=== PATIENT | male | born 1945 | race Caucasian/White ===

== ENCOUNTER 2017-02-26 10:15 | Inpatient (IN) | payer OTHER ==
[~2017-02-26] VITALS: Ht 175.3 cm; Wt 105.7 kg
[~2017-02-26 10:15] MED LIST: ASPIR 8181 M1 PO; CO Q-10100 MG PO; FISH OIL 1,0001 EA10 PO; LANTUS 10100 UNITS/ SC; NOVOLOG 10100 UNITS/ SC; OXYCODONE HCL10 MG PO; OXYCONTIN40 MG PO; SLOW-MAG,MAG DE64 MG PO; TRAVATAN Z5 ML BOTH EYES; VITAMIN D31000 UNIT PO
[2017-02-26 11:13] LABS: HEMATOCRIT 41.6 % (38.0-50.0); HEMOGLOBIN 14.2 G/DL (12.5-16.6); MCH 30.5 PG (29.0-34.0); MCHC 34.1 G/DL (30.0-36.0); MCV 89.3 FL (86-99); PLATELET COUNT 207 K/uL (156-360); RBC DIS.WIDTH-CV 13.4 % (11.8-14.6); RBC DIS.WIDTH-SD 43.8 % (39-53); RED BLOOD COUNT 4.66 M/uL (4.00-5.50); WHITE BLOOD COUNT 8.1 K/uL (4.1-10.2)
[2017-02-26 11:32] LABS: CHLORIDE 109 MEQ/L (99-109); POTASSIUM 4.5 MEQ/L (3.7-5.4); SODIUM 142 MEQ/L (136-147)
[2017-02-26 11:36] VITALS: BP 139/63
[2017-02-26 11:38] LABS: CREATININE 0.8 MG/DL (0.6-1.3); GFR ESTIMATE (CALCULATED) > 59 mL/min/ (58.99-99999); GLUCOSE 142 mg/dL (70-99); UREA NITROGEN (BUN) 23 mg/dL (9-23)
[2017-02-26 17:21] VITALS: BP 140/65
[2017-02-26 23:39] VITALS: BP 130/59
[2017-02-27] VITALS: BP 130/59
[2017-02-27 07:06] VITALS: BP 138/62
[2017-02-27 15:26] VITALS: BP 133/60
[2017-02-27 23:20] VITALS: BP 118/56
[2017-02-28] VITALS: BP 118/56
[2017-02-28 07:02] VITALS: BP 138/63
[2017-02-28 15:14] VITALS: BP 128/62
[2017-02-28 23:09] VITALS: BP 122/67
[2017-03-01] VITALS: BP 122/67
[2017-03-01 07:58] VITALS: BP 111/55
[2017-03-01 13:53] LABS: CREATININE 0.8 MG/DL (0.6-1.3); GFR ESTIMATE (CALCULATED) > 59 mL/min/ (58.99-99999)
[2017-03-01 15:56] VITALS: BP 131/60
[2017-03-01 23:55] VITALS: BP 117/58
[2017-03-02 08:38] VITALS: BP 135/63
[2017-03-02 16:09] VITALS: BP 137/64
[2017-03-03 00:12] VITALS: BP 112/58
[2017-03-03 07:26] VITALS: BP 127/61
[2017-03-03 15:05] VITALS: BP 126/59
[2017-03-03 23:55] VITALS: BP 123/58
[2017-03-04] MEDS ORDERED: OXYCONTIN40 MG PO (11:06)
[2017-03-04] MEDS ORDERED: OXYCODONE HCL5 MG PO ×2 (11:06)
[2017-03-04] MEDS ORDERED: VANCOMYCIN1 GM/200 M IV ×2 (11:18→11:23)
[2017-03-04 15:07] VITALS: BP 119/58
[2017-03-04 23:17] VITALS: BP 112/57
[2017-03-05 07:24] VITALS: BP 133/64
[2017-03-05 16:17] VITALS: BP 144/67
[2017-03-05 23:46] VITALS: BP 129/61
[2017-03-06 08:34] VITALS: BP 127/61
[2017-03-06 16:13] VITALS: BP 148/66
[2017-03-07 00:18] VITALS: BP 125/61
[2017-03-07 06:18] LABS: ALBUMIN 3.7 G/DL (3.2-4.8); CHLORIDE 104 MEQ/L (99-109); CREATININE 0.9 MG/DL (0.6-1.3); GFR ESTIMATE (CALCULATED) > 59 mL/min/ (58.99-99999); GLUCOSE 175 mg/dL (70-99); PHOSPHORUS 3.6 mg/dL (2.5-4.9); POTASSIUM 4.6 MEQ/L (3.7-5.4); SODIUM 141 MEQ/L (136-147); UREA NITROGEN (BUN) 22 mg/dL (9-23)
[2017-03-07 08:18] VITALS: BP 140/65
[2017-03-07 16:58] VITALS: BP 145/67
[2017-03-07 23:00] VITALS: BP 130/63
[2017-03-08 07:56] VITALS: BP 129/60
== END 2017-03-08 15:38 | DRG 908 ==
LOC: SDC 10:15 → 2SOUTH 15:59 → 3EAST 15:59 → ENRESERV 16:00 → 3EAST 17:09
PROVIDERS: Neurological Surgery
PROC: 0JD70ZZ Extraction of Back Subcutaneous Tissue and Fascia, Open Approach (ICD-10-PCS; principal; 2017-02-26)
PROC: 0SP004Z Removal of Internal Fixation Device from Lumbar Vertebral Joint, Open Approach (ICD-10-PCS; principal; 2017-02-26)
PROC: 0SP00AZ Removal of Interbody Fusion Device from Lumbar Vertebral Joint, Open Approach (ICD-10-PCS; principal; 2017-02-26)
DX: T85.79XA Infection and inflammatory reaction due to other internal prosthetic devices, implants and grafts, initial encounter (principal); Y83.1 Surgical operation with implant of artificial internal device as the cause of abnormal reaction of the patient, or of later complication, without mention of misadventure at the time of the procedure; M46.26 Osteomyelitis of vertebra, lumbar region; M51.36 Other intervertebral disc degeneration, lumbar region; I10 Essential (primary) hypertension; I25.10 Atherosclerotic heart disease of native coronary artery without angina pectoris; G43.909 Migraine, unspecified, not intractable, without status migrainosus; E11.9 Type 2 diabetes mellitus without complications; Z88.0 Allergy status to penicillin; Z79.82 Long term (current) use of aspirin; Z79.4 Long term (current) use of insulin; Z98.1 Arthrodesis status; I25.2 Old myocardial infarction; Z88.2 Allergy status to sulfonamides; Z85.038 Personal history of other malignant neoplasm of large intestine; Z90.49 Acquired absence of other specified parts of digestive tract; Z86.14 Personal history of Methicillin resistant Staphylococcus aureus infection
CPT/HCPCS: 76937; 80048; 80069; 80202; 82565; 82948; 85027; 86140; 87070; 87075; 87205; 87641; 88305; 97530 GO; 97530 GP; A6260; J1815; J2270; J3010; J3370; J3480; J7120